=== PATIENT | female | born 1965 | race African-American/Black ===

== ENCOUNTER 2020-05-27 23:48 | Emergency (ER) | payer MEDICAID ==
[~2020-05-27] VITALS: Ht 167.6 cm; Wt 70.0 kg
[2020-05-28 00:01] VITALS: BP 153/52
[2020-05-28] MEDS ORDERED: DIPHENHYDRAMINE 25MG CAPSULE PO ONE (00:15)
[2020-05-28] MEDS ORDERED: DEXAMETHASONE 4MG/ML 1ML VIAL IM ONE (00:15)
== END 2020-05-28 00:29 | disposition home or self-care (01) ==
LOC: ER 23:48
DX: T78.40XA Allergy, unspecified, initial encounter (principal); X58.XXXA Exposure to other specified factors, initial encounter
CPT/HCPCS: 96372; 99283; J1100; Q0163